=== PATIENT | female | born 1995 | race Hispanic/Latino ===

== ENCOUNTER 2017-11-07 09:28 | Day surgery (SDC) | payer OTHER ==
[2017-08-29 15:16] VITALS: BMI 24.7
[2017-11-07 10:28] VITALS: TEMP 98.7
[2017-11-07] MEDS ORDERED: Propofol 10 mg/ml Inj (20 ML) ONE (12:54)
[2017-11-07 14:17] VITALS: BP 99/57; PULSE 65; RESP 17; O2SAT 100
== END 2017-11-07 14:15 | disposition home or self-care (01) ==
LOC: C.ENDO 09:28
PROVIDERS: ATTEND Internal Medicine Gastroenterology
DX: K52.9 Noninfective gastroenteritis and colitis, unspecified (principal); R10.9 Unspecified abdominal pain; K64.8 Other hemorrhoids
CPT/HCPCS: 45380; 84703; 88305; 88313; 88342; J2704